=== PATIENT | female | born 1985 | race Caucasian/White ===

== ENCOUNTER 2019-05-28 16:53 | Emergency (ER) | payer MEDICAID, OTHER ==
[~2019-05-28] VITALS: Ht 167.6 cm; Wt 63.0 kg
[2019-05-28 17:16] VITALS: BP 123/72
[2019-05-28] MEDS ORDERED: SULF1TAB49 PO (18:12)
[2019-05-28] MEDS ORDERED: sulfamethoxazole/trimethoprim DS (800/160mg) tablet PO ONE (18:15)
== END 2019-05-28 18:48 | disposition home or self-care (01) ==
LOC: ER 16:53
DX: L73.9 Follicular disorder, unspecified (principal); F12.90 Cannabis use, unspecified, uncomplicated; Z79.899 Other long term (current) drug therapy
CPT/HCPCS: 99283

== ENCOUNTER 2019-06-27 13:30 | Emergency (ER) | payer MEDICAID, OTHER ==
[~2019-06-27] VITALS: Ht 167.6 cm; Wt 59.1 kg
[~2019-06-27 13:30] MED LIST: SULF1TAB49 PO
[2019-06-27] MEDS ORDERED: normal saline 1000ML IV soln IVB ONE (14:00)
--- NOTE | 2019-06-27 14:02 | NUR ---
Spoke to Poison Control who recommends to check Tylenol level, toxicology, and CAM; check liver function for possible tylenol antidote necessity; give Narcan PRN, and to observe pt 6 hrs s/p any Narcan.
[2019-06-27 14:28] LABS: BASOPHILS % (AUTO) 0.6 % (0-1); EOSINOPHILS % (AUTO) 0.1 % (0-6); HEMATOCRIT 37.7 % (35.0-45.0); HEMOGLOBIN 12.7 g/dl (12.0-16.0); LYMPHOCYTES # (AUTO) 1.1 X10'3 (1.1-4.8); LYMPHOCYTES % (AUTO) 15.8 % (21-51); MEAN CORPUSCULAR HEMOGLOBIN 29.2 PG (27.0-31.0); MEAN CORPUSCULAR HGB CONC 33.7 g/dL (33.0-36.5); MEAN CORPUSCULAR VOLUME 86.5 FL (78-98); MEAN PLATELET VOLUME 7.8 FL (7.4-10.4); MONOCYTES # (AUTO) 0.5 X10'3 (0-0.9); MONOCYTES % (AUTO) 6.9 % (2-12); NEUTROPHILS # (AUTO) 5.6 X10'3 (1.8-7.7); NEUTROPHILS % (AUTO) 76.6 % (42-75); PLATELET COUNT 291 X10'3 (140-440); RED BLOOD COUNT 4.36 X10'6 (4.20-5.60); RED CELL DISTRIBUTION WIDTH 14.2 % (11.5-14.5); WHITE BLOOD COUNT 7.3 X10'3 (4.5-11.0)
[2019-06-27 14:39] LABS: ALANINE AMINOTRANSFERASE 20 U/L (12-78); ALBUMIN 4.1 G/DL (3.4-5.0); ALBUMIN/GLOBULIN RATIO 1.5 (1.1-1.5); ALKALINE PHOSPHATASE 66 IU/L (46-116); ANION GAP 3 (8-16); ASPARTATE AMINO TRANSFERASE 33 U/L (10-37); BILIRUBIN,TOTAL 0.6 MG/DL (0.1-1.0); BLOOD UREA NITROGEN 19 MG/DL (7-18); BUN/CREATININE RATIO 27.5 (6.6-38.0); CHLORIDE 103 MMOL/L (99-107); CREATININE 0.69 MG/DL (0.40-0.90); GLUCOSE 78 MG/DL (70-104); POTASSIUM 3.4 MMOL/L (3.5-5.1); SODIUM 140 MMOL/L (135-145); TOTAL CARBON DIOXIDE 34.1 MMOL/L (24-32); TOTAL PROTEIN 6.8 G/DL (6.4-8.2); eGFR > 90 ML/MIN
[2019-06-27 14:41] LABS: ACETAMINOPHEN < 2.0 UG/ML (10-30)
[2019-06-27 15:19] LABS: ETHANOL < 0.010 GM/DL (0.0-0.010)
[2019-06-27 16:04] LABS: URINE AMPHETAMINE SCREEN POSITIVE (Neg); URINE BARBITUATE SCREEN NEGATIVE (Neg); URINE BENZODIAZEPINES SCREEN NEGATIVE (Neg); URINE CANNABINOID SCREEN NEGATIVE (Neg); URINE COCAINE SCREEN NEGATIVE (Neg); URINE METHADONE SCREEN NEGATIVE (Neg); URINE OPIATE SCREEN NEGATIVE (Neg); URINE PHENCYCLIDINE SCREEN NEGATIVE (Neg)
[2019-06-27 17:10] VITALS: BP 103/53
[2019-06-27 18:40] LABS: ALANINE AMINOTRANSFERASE 16 U/L (12-78); ASPARTATE AMINO TRANSFERASE 28 U/L (10-37)
[2019-06-27 18:45] LABS: ACETAMINOPHEN < 2.0 UG/ML (10-30)
== END 2019-06-27 18:59 | disposition home or self-care (01) ==
LOC: ER 13:31
DX: T39.1X1A Poisoning by 4-Aminophenol derivatives, accidental (unintentional), initial encounter (principal); R11.2 Nausea with vomiting, unspecified; R10.11 Right upper quadrant pain; M06.9 Rheumatoid arthritis, unspecified; F12.90 Cannabis use, unspecified, uncomplicated; Y92.89 Other specified places as the place of occurrence of the external cause
CPT/HCPCS: 36415; 80053; 80305; 80320; 80329; 84450; 84460; 85025; 93005; 96360; 96361; 99284; J7030

== ENCOUNTER 2021-03-05 23:35 | Emergency (ER) | payer MEDICAID | END 2021-03-06 03:04 | disposition left against medical advice (07) | LOC: ER 23:36 | DX: Z53.21 Procedure and treatment not carried out due to patient leaving prior to being seen by health care provider (principal) ==

== ENCOUNTER 2021-04-25 16:46 | Emergency (ER) | payer MEDICAID ==
[~2021-04-25] VITALS: Ht 167.6 cm; Wt 68.2 kg
[2021-04-25] MEDS ORDERED: ALBU6.7H9 INH (17:09)
[2021-04-25 17:20] VITALS: BP 110/61
== END 2021-04-25 17:51 | disposition home or self-care (01) ==
LOC: ER 16:46
DX: J06.9 Acute upper respiratory infection, unspecified (principal); Z20.822 Contact with and (suspected) exposure to COVID-19; R05.9 Cough, unspecified; F12.90 Cannabis use, unspecified, uncomplicated
CPT/HCPCS: 36415; 99283; U0003; U0005

== ENCOUNTER 2021-09-11 02:39 | Emergency (ER) | payer MEDICAID ==
[~2021-09-11] VITALS: Ht 167.6 cm; Wt 56.8 kg
[~2021-09-11 02:39] MED LIST changes: +ALBU6.7H9 INH; -SULF1TAB49 PO
[2021-09-11 02:43] VITALS: BP 129/76
[2021-09-11] MEDS ORDERED: cephalexin 250mg capsule PO ONE (03:00)
[2021-09-11] MEDS ORDERED: sulfamethoxazole/trimethoprim DS (800/160mg) tablet PO ONE (03:00)
[2021-09-11] MEDS ORDERED: SULF1TAB49 PO (03:07)
[2021-09-11] MEDS ORDERED: CEPH-585 PO (03:07)
[2021-09-11] MEDS ORDERED: bacitracin 15gm ointment TP ONE (03:15)
== END 2021-09-11 03:26 | disposition home or self-care (01) ==
LOC: ER 02:40
DX: L23.7 Allergic contact dermatitis due to plants, except food (principal); L03.116 Cellulitis of left lower limb; L03.115 Cellulitis of right lower limb; M06.9 Rheumatoid arthritis, unspecified; F12.90 Cannabis use, unspecified, uncomplicated; Z79.2 Long term (current) use of antibiotics; Z79.899 Other long term (current) drug therapy
CPT/HCPCS: 99284

== ENCOUNTER 2021-12-10 02:13 | Emergency (ER) | payer MEDICAID ==
[~2021-12-10] VITALS: Ht 167.6 cm; Wt 56.1 kg
[~2021-12-10 02:13] MED LIST changes: +CEPH-585 PO
== END 2021-12-10 06:53 | disposition left against medical advice (07) ==
LOC: ER 02:14
DX: B82.0 Intestinal helminthiasis, unspecified (principal); Z53.21 Procedure and treatment not carried out due to patient leaving prior to being seen by health care provider

== ENCOUNTER 2021-12-11 23:37 | Emergency (ER) | payer MEDICAID | END 2021-12-12 01:21 | disposition left against medical advice (07) | LOC: ER 23:38 | DX: Z00.8 Encounter for other general examination (principal); Z53.21 Procedure and treatment not carried out due to patient leaving prior to being seen by health care provider ==

== ENCOUNTER 2022-01-10 15:04 | Emergency (ER) | payer MEDICAID ==
[~2022-01-10] VITALS: Ht 167.6 cm; Wt 59.1 kg
[2022-01-10 16:10] LABS: BASOPHILS % (AUTO) 0.6 % (0-1); EOSINOPHILS # (AUTO) 0.1 X10'3 (0-0.9); EOSINOPHILS % (AUTO) 1.3 % (0-6); HEMATOCRIT 35.5 % (35.0-45.0); HEMOGLOBIN 11.7 g/dl (12.0-16.0); LYMPHOCYTES # (AUTO) 0.7 X10'3 (1.1-4.8); MEAN CORPUSCULAR HEMOGLOBIN 28.6 PG (27.0-31.0); MEAN CORPUSCULAR VOLUME 86.8 FL (78-98); MONOCYTES # (AUTO) 0.7 X10'3 (0-0.9); MONOCYTES % (AUTO) 14.4 % (2-12); NEUTROPHILS # (AUTO) 3.7 X10'3 (1.8-7.7); NEUTROPHILS % (AUTO) 70.7 % (42-75); PLATELET COUNT 253 X10'3 (140-440); RED BLOOD COUNT 4.08 X10'6 (4.20-5.60); RED CELL DISTRIBUTION WIDTH 15.3 % (11.5-14.5); WHITE BLOOD COUNT 5.2 X10'3 (4.5-11.0)
[2022-01-10 16:23] LABS: ALANINE AMINOTRANSFERASE 13 U/L (12-78); ALBUMIN 3.2 G/DL (3.4-5.0); ALBUMIN/GLOBULIN RATIO 0.9 (1.1-1.5); ALKALINE PHOSPHATASE 61 IU/L (46-116); ANION GAP 12 (8-16); ASPARTATE AMINO TRANSFERASE 18 U/L (10-37); BILIRUBIN,TOTAL 0.2 MG/DL (0.1-1.0); BLOOD UREA NITROGEN 8 MG/DL (7-18); BUN/CREATININE RATIO 11.9 (6.6-38.0); CALCIUM 8.4 MG/DL (8.5-10.1); CHLORIDE 101 MMOL/L (99-107); CREATININE 0.67 MG/DL (0.40-0.90); GLUCOSE 115 MG/DL (70-104); POTASSIUM 3.3 MMOL/L (3.5-5.1); SODIUM 134 MMOL/L (135-145); TOTAL CARBON DIOXIDE 21.5 MMOL/L (24-32); TOTAL PROTEIN 6.6 G/DL (6.4-8.2); eGFR > 90 ML/MIN
[2022-01-10 16:23] LABS: URINE HCG POSITIVE (NEG)
[2022-01-10 16:31] LABS: CLARITY,URINE CLEAR (Clear); COLOR,URINE YELLOW (Yellow); GLUCOSE, URINE NEGATIVE (Neg); KETONES,URINE NEGATIVE (Neg); LEUKOCYTE ESTERASE ,URINE NEGATIVE (Neg); NITRITES, URINE NEGATIVE (Neg); OCCULT BLOOD,URINE TRACE-INTACT (Neg); PROTEIN,URINE NEGATIVE (Neg); UROBILINOGEN,URINE 0.2 E.U/dL (0.2-1.0)
[2022-01-10 16:45] LABS: LIPASE 95 U/L (73-393)
[2022-01-10 16:47] LABS: BETA HCG,QUANTITATIVE 76241 mIU/ml
[2022-01-10 16:53] LABS: UA COLLECTION TYPE CLN CATCH MIDSTREAM
[2022-01-10 17:31] LABS: BACTERIA,URINE 1+ /HPF (Neg); MUCUS STRANDS MODERATE /LPF (Neg); RBC,URINE 0-2 /HPF (0-2); SQUAMOUS EPITHELIAL CELL,UR FEW /LPF (FEW); WBC,URINE 0-4 /HPF (0-4)
--- NOTE | 2022-01-10 18:46 | NUR ---
US PAGED AT [id number]
[2022-01-10 20:17] VITALS: BP 101/60
== END 2022-01-10 20:19 | disposition home or self-care (01) ==
LOC: ER 15:06
DX: O41.8X20 Other specified disorders of amniotic fluid and membranes, second trimester, not applicable or unspecified (principal); F12.90 Cannabis use, unspecified, uncomplicated; Z3A.18 18 weeks gestation of pregnancy
CPT/HCPCS: 36415; 76805; 80053; 81001; 81025; 83690; 84702; 85025; 93005; 99285

== ENCOUNTER 2022-06-14 05:54 | Emergency (ER) | payer MEDICAID ==
[~2022-06-14] VITALS: Ht 167.6 cm; Wt 59.1 kg
[~2022-06-14 05:54] MED LIST changes: +ALBU6.7H14 INH; -ALBU6.7H9 INH
[2022-06-14 06:04] VITALS: BP 113/75
== END 2022-06-14 10:40 | disposition left against medical advice (07) ==
LOC: ER 07:23
DX: T81.89XA Other complications of procedures, not elsewhere classified, initial encounter (principal); Z53.21 Procedure and treatment not carried out due to patient leaving prior to being seen by health care provider; X58.XXXA Exposure to other specified factors, initial encounter; Y93.89 Activity, other specified; Y92.89 Other specified places as the place of occurrence of the external cause; Y99.8 Other external cause status

== ENCOUNTER 2022-06-14 14:53 | Emergency (ER) | payer MEDICAID ==
[~2022-06-14] VITALS: Ht 167.6 cm; Wt 59.1 kg
[2022-06-14 15:05] VITALS: BP 121/78
== END 2022-06-14 22:24 | disposition left against medical advice (07) ==
LOC: ER 14:54
DX: T81.9XXA Unspecified complication of procedure, initial encounter (principal); Z53.21 Procedure and treatment not carried out due to patient leaving prior to being seen by health care provider; Y83.9 Surgical procedure, unspecified as the cause of abnormal reaction of the patient, or of later complication, without mention of misadventure at the time of the procedure

== ENCOUNTER 2022-06-18 23:14 | Emergency (ER) | payer MEDICAID ==
[~2022-06-18] VITALS: Ht 167.6 cm; Wt 59.1 kg
[2022-06-19] MEDS ORDERED: normal saline 1000ml 1,000 ML IV ONE (05:45)
[2022-06-19 07:37] LABS: BASOPHILS # (AUTO) 0.1 X10'3 (0-0.2); BASOPHILS % (AUTO) 0.8 % (0-1); EOSINOPHILS # (AUTO) 0.1 X10'3 (0-0.9); EOSINOPHILS % (AUTO) 0.9 % (0-6); HEMOGLOBIN 11.2 g/dl (12.0-16.0); LYMPHOCYTES # (AUTO) 1.8 X10'3 (1.1-4.8); LYMPHOCYTES % (AUTO) 16.3 % (21-51); MEAN CORPUSCULAR HEMOGLOBIN 24.7 PG (27.0-31.0); MEAN CORPUSCULAR VOLUME 77.1 FL (78-98); MEAN PLATELET VOLUME 6.8 FL (7.4-10.4); MONOCYTES # (AUTO) 0.7 X10'3 (0-0.9); MONOCYTES % (AUTO) 6.1 % (2-12); NEUTROPHILS # (AUTO) 8.3 X10'3 (1.8-7.7); NEUTROPHILS % (AUTO) 75.9 % (42-75); PLATELET COUNT 559 X10'3 (140-440); RED BLOOD COUNT 4.54 X10'6 (4.20-5.60); RED CELL DISTRIBUTION WIDTH 20.9 % (11.5-14.5); WHITE BLOOD COUNT 10.9 X10'3 (4.5-11.0)
[2022-06-19 08:05] LABS: ALANINE AMINOTRANSFERASE 15 U/L (12-78); ALBUMIN 2.7 G/DL (3.4-5.0); ALBUMIN/GLOBULIN RATIO 0.7 (1.1-1.5); ALKALINE PHOSPHATASE 127 IU/L (46-116); ANION GAP 8 (8-16); ASPARTATE AMINO TRANSFERASE 20 U/L (10-37); BILIRUBIN,TOTAL 0.4 MG/DL (0.1-1.0); BLOOD UREA NITROGEN 19 MG/DL (7-18); BUN/CREATININE RATIO 28.4 (6.6-38.0); CALCIUM 8.9 MG/DL (8.5-10.1); CHLORIDE 105 MMOL/L (99-107); CREATININE 0.67 MG/DL (0.40-0.90); GLUCOSE 95 MG/DL (70-104); POTASSIUM 3.9 MMOL/L (3.5-5.1); SODIUM 137 MMOL/L (135-145); TOTAL CARBON DIOXIDE 23.7 MMOL/L (24-32); TOTAL PROTEIN 6.7 G/DL (6.4-8.2); eGFR > 90 ML/MIN
[2022-06-19 08:11] LABS: PLATELET ESTIMATE INCREASED
[2022-06-19 08:12] LABS: ANISOCYTOSIS 3+; ELLIPTOCYTES FEW; LARGE PLATELETS FEW; MICROCYTOSIS 1+
[2022-06-19 08:19] LABS: BETA HCG,QUANTITATIVE 56 mIU/ml; C-REACTIVE PROTEIN 2.39 MG/DL (0.0-0.5)
[2022-06-19] MEDS ORDERED: iohexol 300mg/ml 100ml inj. ONE (09:00)
[2022-06-19 10:45] LABS: CLARITY,URINE CLEAR (Clear); COLOR,URINE YELLOW (Yellow); GLUCOSE, URINE NEGATIVE (Neg); KETONES,URINE NEGATIVE (Neg); LEUKOCYTE ESTERASE ,URINE NEGATIVE (Neg); NITRITES, URINE NEGATIVE (Neg); OCCULT BLOOD,URINE TRACE-INTACT (Neg); PH,URINE 6.5 (4.8-8.0); PROTEIN,URINE NEGATIVE (Neg); UROBILINOGEN,URINE 0.2 E.U/dL (0.2-1.0)
[2022-06-19 10:52] LABS: UA COLLECTION TYPE CLN CATCH MIDSTREAM
[2022-06-19 10:53] LABS: BACTERIA,URINE NONE SEEN /HPF (Neg); RBC,URINE 0-2 /HPF (0-2); SQUAMOUS EPITHELIAL CELL,UR FEW /LPF (FEW); WBC,URINE 0-4 /HPF (0-4)
[2022-06-19 10:54] LABS: MUCUS STRANDS FEW /LPF (Neg)
[2022-06-19 12:33] VITALS: BP 123/84
--- NOTE | 2022-06-19 13:00 | NUR ---
pt left AMA, doctor is aware
--- NOTE | 2022-06-19 14:43 | NUR ---
Followed up with Patient per Dr. ochoa request. Patient had multiple questions regarding scans and care that I was unable to answer. I was told to notify patient that she needed follow up care of an whistle punk.
== END 2022-06-19 13:03 | disposition still patient (30) ==
LOC: ER 23:16
DX: T81.89XA Other complications of procedures, not elsewhere classified, initial encounter (principal); K62.89 Other specified diseases of anus and rectum; F12.10 Cannabis abuse, uncomplicated; Z79.899 Other long term (current) drug therapy
CPT/HCPCS: 36415; 74178; 80053; 81001; 84145; 84702; 85008; 85025; 85651; 86140; 93005; 96360; 99285; J3490; J7030; Q9967

== ENCOUNTER 2022-08-08 18:14 | Emergency (ER) | payer MEDICAID ==
[~2022-08-08] VITALS: Ht 167.6 cm; Wt 59.1 kg
[2022-08-08 18:54] VITALS: BP 119/35
[2022-08-09] MEDS ORDERED: AMOX500C2 PO (12:17)
== END 2022-08-08 22:54 | disposition left against medical advice (07) ==
LOC: ER 18:15
DX: K04.7 Periapical abscess without sinus (principal); Z53.21 Procedure and treatment not carried out due to patient leaving prior to being seen by health care provider

== ENCOUNTER 2022-08-09 11:04 | Emergency (ER) | payer MEDICAID ==
[~2022-08-09] VITALS: Ht 167.6 cm; Wt 59.1 kg
[2022-08-09 11:12] VITALS: BP 109/63
[2022-08-09] MEDS ORDERED: AMOX500C2 PO (12:17)
== END 2022-08-09 12:27 | disposition home or self-care (01) ==
LOC: ER 11:04
DX: K04.7 Periapical abscess without sinus (principal); F12.90 Cannabis use, unspecified, uncomplicated; M19.90 Unspecified osteoarthritis, unspecified site; Z98.890 Other specified postprocedural states; Z79.899 Other long term (current) drug therapy
CPT/HCPCS: 41800; 99284; A6449

== ENCOUNTER 2023-02-26 16:19 | Emergency (ER) | payer MEDICAID ==
[~2023-02-26] VITALS: Ht 167.6 cm; Wt 71.6 kg
[~2023-02-26 16:19] MED LIST changes: -CEPH-585 PO
[2023-02-26 16:30] VITALS: BP 121/71; PULSE 83; RESP 16; TEMP 98; O2SAT 98
--- NOTE | 2023-02-26 20:01 | NUR ---
PATIENT WAS NIL UNTIL 1929, WHEN PATIENT WAS CALLED BACK PATIENT VOICED FRUSTRATION THAT SHE HAD BUS TICKET AND HAD TO LEAVE AT 1999. PT SPOKE WITH LUNA LOYD IN [place] ABOUT COMING BACK BUS TICKET IS SUPPOSEDLY NOT UNTIL 0 TONIGHT.
[2023-02-26] MEDS ORDERED: oxyCODONE/APAP 5-325mg tablet PO ONE (20:35)
--- NOTE | 2023-02-26 22:19 | NUR ---
Patient never returned to ER as she stated she would. Cari LOYD who evaluated patient made aware.
== END 2023-02-26 22:19 | disposition left against medical advice (07) ==
LOC: ER 16:19
DX: S62.306A Unspecified fracture of fifth metacarpal bone, right hand, initial encounter for closed fracture (principal); F12.90 Cannabis use, unspecified, uncomplicated; Z79.899 Other long term (current) drug therapy; X58.XXXA Exposure to other specified factors, initial encounter; Y93.89 Activity, other specified; Y92.89 Other specified places as the place of occurrence of the external cause; Y99.8 Other external cause status
CPT/HCPCS: 73130; 99283

== ENCOUNTER 2023-05-16 12:17 | Emergency (ER) | payer MEDICAID ==
[~2023-05-16] VITALS: Ht 167.6 cm; Wt 61.4 kg
[2023-05-16 12:23] VITALS: BP 104/62; PULSE 89; RESP 16; TEMP 97.4; O2SAT 96
== END 2023-05-16 13:12 | disposition left against medical advice (07) ==
LOC: ER 12:17
DX: Z04.1 Encounter for examination and observation following transport accident (principal); Z53.21 Procedure and treatment not carried out due to patient leaving prior to being seen by health care provider
CPT/HCPCS: 99281

== ENCOUNTER 2023-06-17 00:37 | Emergency (ER) | payer MEDICAID | END 2023-06-17 01:34 | disposition left against medical advice (07) | LOC: ER 00:37 | DX: R51.9 Headache, unspecified (principal); Z53.21 Procedure and treatment not carried out due to patient leaving prior to being seen by health care provider ==

== ENCOUNTER 2023-06-22 02:44 | Emergency (ER) | payer MEDICAID ==
[~2023-06-22] VITALS: Ht 167.6 cm; Wt 56.8 kg
[2023-06-22 02:46] VITALS: TEMP 98
[2023-06-22] MEDS ORDERED: LIDOCAINE 2% (20mg/ml) w/EPINEPHRINE 1:200,000-PF 10 ML inj. SQ ONE (03:05)
[2023-06-22] MEDS ORDERED: LIDOCAINE 1%/EPI 1:100,000 inj. 10 ML multi-dose vial SQ ONE (03:10)
[2023-06-22 03:27] VITALS: BP 106/62; PULSE 90; RESP 16; O2SAT 98
== END 2023-06-22 03:55 | disposition home or self-care (01) ==
LOC: ER 02:44
DX: S81.811A Laceration without foreign body, right lower leg, initial encounter (principal); J02.9 Acute pharyngitis, unspecified; M06.9 Rheumatoid arthritis, unspecified; Z79.899 Other long term (current) drug therapy; W19.XXXA Unspecified fall, initial encounter; Z91.81 History of falling; Y93.89 Activity, other specified; Y92.89 Other specified places as the place of occurrence of the external cause; Y99.8 Other external cause status
CPT/HCPCS: 12002; 99284; J3490; J7030; A6449